=== PATIENT | male | born 1945 | race Caucasian/White ===

== ENCOUNTER 2021-04-25 09:30 | Day surgery (SDC) | payer OTHER ==
[2021-04-18 10:27] LABS: Absolute Lymphocytes (CBC) 1.5 K/uL (0.7-4.9); Basophils % 0.3 % (0-1.3); Hematocrit 44.8 % (39.6-49.0)
[2021-04-18 10:28] LABS: Protime INR 1.11
--- NOTE | 2021-04-18 10:41 | RAD REPORT ---
EXAM DESCRIPTION: Shital Pa And Lat (2 Views)04/18/2021 10:15 am CLINICAL HISTORY: Preop for surgery COMPARISON: None FINDINGS: Several small nodules within the left lung. Area scarring or subsegmental atelectasis right middle lobe. Heart is mildly enlarged IMPRESSION: Several small nodules left lung may represent granulomas. It is recommended that the pat ient have a followup chest x-ray in 3 months for re-evaluation
[2021-04-18 12:00] LABS: BUN Blood Urea Nitrogen 12 mg/dL (7-18); Bicarbonate 31 mmol/L (21-32); Glucose Level 109 mg/dL (74-106); Potassium 3.9 mmol/L (3.5-5.1); Sodium Level 141 mmol/L (136-145)
--- NOTE | 2021-04-19 08:05 | EKG ---
Test Date: 2021-04-18 Test Time: 09:44:31 [employer] Athlete: STEVE MEASUREMENT RESULTS: Intervals: Rate: 74 OR: 172 QRSD: 98 QT: 404 QTc: 448 [place]: P: 59 OR: 172 QRS: -19 T: -18 INTERPRETIVE STATEMENTS: Sinus rhythm with marked sinus arrhythmia Incomplete right bundle branch block Minimal voltage criteria for LVH, may be normal variant Inferior infarct, age undetermined Abnormal ECG No previous ECG available for comparison Electronically Signed On 04-19-21 08:03:18 DISTRIBUTION SPECIALIST by Cade Gaytan
[~2021-04-25 09:30] MED LIST: AMPICILLIN SODIUM 2 GM in NA CHLORIDE 0.9% 100 ML IVPB SCH
[2021-04-25] MEDS ORDERED: GENTAMICIN 80 MG/100 ML BAG 80 MG/100 ML BAG IV ONE (10:54)
[2021-04-25] MEDS ORDERED: GENTAMICIN 100 MG/100 ML BAG 200 ML IV ONE (10:55)
[2021-04-25] MEDS ORDERED: NA CHLORIDE 0.9% 1,000 ML ONE (11:00)
[2021-04-25] MEDS ORDERED: dexAMETHasone 10 MG/ML VIAL ONE (12:49)
[2021-04-25] MEDS ORDERED: FENTANYL CITR 100 MCG/2 ML ONE (12:49)
[2021-04-25] MEDS ORDERED: MIDAZOLAM HCL 2 MG/2 ML INJ ONE (12:49)
[2021-04-25] MEDS ORDERED: propofoL 200 MG/20 ML VIAL IV ONE ×2 (12:49→14:42)
[2021-04-25] MEDS ORDERED: LIDOCAINE 1% MPF 5 ML VIAL ONE (12:49)
[2021-04-25] MEDS ORDERED: OPIUM/BELLADONNA SUPPOS (30-16.2 MG) PR ONE ×2 (13:35→17:25)
[2021-04-25] MEDS ORDERED: CODEINE 30MG/APAP 300MG TAB PO PRN (13:35)
[2021-04-25] MEDS ORDERED: ONDANSETRON 4 MG/2 ML VIAL ONE (15:48)
[2021-04-25] MEDS ORDERED: ALBUTEROL 2.5 MG/3 ML NEB SOL ONE (16:02)
--- NOTE | 2021-04-25 16:39 | OP ---
Date of Procedure: 04/25/2021 Surgeon: EMMETT SIMPSON Preoperative Diagnoses: 1.Bladder calculi. 2.Benign prostatic hypertrophy with obstructive urinary symptoms. 3.Urinary retention. 4.Lung nodules. Postoperative Diagnoses: 1.Bladder calculi. 2.Benign prostatic hypertrophy with obstructive urinary symptoms. 3.Urinary retention. 4.Lung nodules. 5.Prostatic urethral calculi. Principal Procedures: 1.Cystoscopy with extraction of multiple foreign bodies/stones. 2.Bipolar transurethral resection of the prostate. Indication For Procedure: Mr. Neal presented to the Urology Clinic with urinary retention and ev idence of BPH with massive lower urinary tract obstruction due to lateral lobar hypertrophy with intr avesical projection of median lobe as well as anterior lobar hypertrophy with fusion of the lateral l obes associated with this obstruction and bladder calculi present. As a result, surgical therapy was recommended. Additionally, I discussed with the patient preoperatively the finding of multiple smal l pulmonary nodules on his chest x-ray. I provided a copy of the report to the patient and his explaining to them the necessity of ict account manager followup of this condition. I explained that I was not qualified to make a determination as to whether pulmonary nodules were significant and when they req uired additional followup. As a result, I recommended basic followup within the 3 months' time recom mended per the radiologist's followup recommendations. Procedure In Detail: The patient was consented in the preoperative holding area before being transfe rred to the operative suite where general anesthesia was induced. He was given ampicillin 2 g and ge ntamicin 280 mg IV antimicrobial prophylaxis. Pneumo boots were provided for DVT prophylaxis. The i ndwelling Angel catheter was removed and the patient was placed in the lithotomy position, padded and secured to the table appropriately. His genitalia were prepped using Hibiclens and he was draped in standard fashion. The case was begun using a 26-Gibraltarian resectoscope and the visual obturator to tra verse the urethra and into the bladder after navigating a markedly obstructive prostate with a very l mirian prostatic urethral lumen likely extending more than 5-6 cm in length. As a result, the scope wou ld not properly enter the bladder beyond the prostatic fossa. However, I was able to enter the bladd er sufficiently to find the bladder calculi previously observed, and I used an Terrajoule evacuator to rem ove both calculi. I then surveyed the bladder in its entirety, and no running papillary mucosal lesi ons were noted, though the bladder mucosa was significantly erythematous despite the patient having s tarted antimicrobial therapy a few days ago. I then turned my attention to resection of the prostate . Using a bipolar loop, I began resecting the median lobe intravesically projecting and leveling it with the bladder neck. I then continued the resection down the median bar until I reached the verumo ntanum. Once a nice trough had been created, I then turned my attention to the left lateral lobe, wh ich was similarly resected from the bladder neck first the midportion of the prostate and then the ap ical portion of the prostate where the lateral lobar hypertrophy was overlapping and crossing the mid line. I resected the apical portion of the overlap until it was just at the midline and approximatin g the right lateral lobe without overlapping. I then turned my attention to the right lateral lobe a nd performed a similar resection from the bladder neck down to the verumontanum from the posterior to the anterior apical region of the prostate. Once the fossa had been completely resected which took over an hour of resection, I then Ellik evacuated all prostatic chips and removed the once that would not come out using the Ellik under direct vision grasping it using the bipolar loop. I then continu ed to resect more tissue until the fossa was completely patent without any lateral lobar overlap seen . Once this was completed, I then inserted careful fulguration of the bleeding vessel with the bladd er completely decompressed. When no significant ooze was noted, I then made sure to remove all prost atic calculi, which were encountered at multiple points in multiple pockets throughout his prostatic urethra. Once the bladder was free of any remaining stones or prostatic tissue and the prostatic fos sa was free of any bleeding, I then left his bladder full and removed the resectoscope. I then place d a 24-Gibraltarian 3-way Angel catheter into his bladder with ease and placed 45 cc of sterile water in th e balloon. The catheter was connected to continuous bladder irrigation and I irrigated using a 60 cc catheter tip syringe to ensure it was patent. I then placed the catheter to moderate traction and t o a floor bag. The patient was then awakened from general anesthesia after being taken out of the li thotomy position. He was then transferred to a stretcher and then transferred to the recovery room i n good condition. Complications: None. Discharge Disposition: He should follow up in the Urology Clinic on Saturday or Saturday with nurse prac Vishal cunningham for voiding trial. Subsequent followup can be established with me intervally in a bout 3 months. He should also complete his antimicrobial therapy provided preoperatively and he may resume his Plavix following followup with nurse practitionerVishal where the clarity of his urine may be evaluated. LYLE/MODL Voice ID: [id number] Report ID: [id number]
[2021-04-25] MEDS ORDERED: CODEINE 30MG/APAP 300MG TAB ONE (17:25)
[2021-04-25 17:59] VITALS: TEMP 97.6; O2SAT 91
[2021-04-25 19:46] VITALS: BP 158/91
== END 2021-04-25 19:00 | disposition home or self-care (01) ==
LOC: OR 09:30
PROVIDERS: ATTEND Urology
PROC: 0TCB8ZZ Extirpation of Matter from Bladder, Via Natural or Artificial Opening Endoscopic (ICD-10-PCS; principal; 2021-04-25 12:30)
PROC: 0VT08ZZ Resection of Prostate, Via Natural or Artificial Opening Endoscopic (ICD-10-PCS; 2021-04-25 12:30)
DX: N40.1 Benign prostatic hyperplasia with lower urinary tract symptoms (principal); N21.0 Calculus in bladder; R33.8 Other retention of urine; N42.0 Calculus of prostate; R91.8 Other nonspecific abnormal finding of lung field; Z20.822 Contact with and (suspected) exposure to COVID-19
CPT/HCPCS: 93005; 87088; 85025; 87086; 80048; 36415; 85610; 82947; 88300; 88305; 87077; 87186; 82360; 71046; 52310; 52601; U0003; J2704; J3010; J1100; J1580 ×2; J7030; J2405; J0290; J2250